=== PATIENT | male | born 1960 | race Caucasian/White ===

== ENCOUNTER 2017-05-24 03:01 | Inpatient (IN) | payer OTHER ==
[~2017-05-24] VITALS: Ht 175.3 cm; Wt 87.5 kg
[~2017-05-24 03:01] MED LIST: INSU100C5 SQ-INSULIN; INSU100I28 SQ-INSULIN; LEVO50TA5 PO; OXYC5TAB3 PO
[2017-05-24] MEDS ORDERED: ONDANSETRON 2MG/ML, 2ML ONE (03:26)
[2017-05-24] MEDS ORDERED: morphine SULFATE 10 MG/ML, 1ML ONE ×2 (03:27→05:04)
[2017-05-24] MEDS ORDERED: SODIUM CHLORIDE 0.9% 1,000ML IVBOLUS ONE ×2 (03:30→04:30)
[2017-05-24] MEDS ORDERED: ONDANSETRON 2MG/ML, 2ML IVPush ONE (03:30)
[2017-05-24] MEDS: MORPHINE SULFATE 4 MG/ML, 1ML IVPush PRN ×2 (03:32→05:07)
[2017-05-24 04:03] LABS: HEMATOCRIT 47.6 % (39.2-51.8); WHITE BLOOD COUNT 9.9 x10^3/uL (3.4-10)
[2017-05-24 04:15] LABS: ASPARTATE AMINO TRANSFERASE 7 U/L (15-37); BLOOD UREA NITROGEN 18 mg/dL (7-18)
[2017-05-24 04:20] LABS: IS PT STATUS REG ER OR PRE ER? YES
[2017-05-24] MEDS ORDERED: INSULIN REGULAR 100 UNITS/ML, 3ML VIAL ONE (04:59)
[2017-05-24] MEDS ORDERED: INSULIN REGULAR 100 UNITS/ML, 3ML VIAL IVPush ONE (05:00)
[2017-05-24 05:28] LABS: PH, VENOUS 7.197 pH (7.320-7.420)
[2017-05-24] MEDS ORDERED: REGULAR INSULIN 62.5 UNITS in SODIUM CHLORIDE 0.9% 249.375 ML IV PRN (05:42)
[2017-05-24] MEDS ORDERED: D5%-0.45% NACL 1,000 ML IV SCH (05:42)
[2017-05-24] MEDS ORDERED: hydrALAzine 20 MG/ML, 1ML IVPush PRN (06:00)
[2017-05-24] MEDS ORDERED: ACETAMINOPHEN 325 MG TABLET PO PRN (06:00)
[2017-05-24] MEDS ORDERED: LORazepam 2 MG/ML, 1ML IVPush PRN (06:00)
[2017-05-24] MEDS ORDERED: HYDROmorphone 2 MG/ML, 1ML IVPush PRN (06:00)
[2017-05-24] MEDS ORDERED: ONDANSETRON 2MG/ML, 2ML IVPush PRN (06:00)
[2017-05-24 06:26] LABS: BLOOD UREA NITROGEN 17 mg/dL (7-18)
[2017-05-24] MEDS ORDERED: HYDROmorphone 2 MG/ML, 1ML ONE (06:31)
[2017-05-24] MEDS: SODIUM CHLORIDE 0.9% 1,000 ML IV SCH ×2 (07:27→09:42)
[2017-05-24] MEDS ORDERED: MAGNESIUM SULFATE PMX 4GM/100M 100 ML IV ONE (08:20)
[2017-05-24] MEDS: REGULAR INSULIN 62.5 UNITS in SODIUM CHLORIDE 0.9% 249.375 ML IV PRN ×2 (08:35→18:12)
[2017-05-24] MEDS ORDERED: KETOROLAC 30 MG/1 ML IVPush PRN (10:30)
[2017-05-24] MEDS: D5%-0.45% NACL 1,000 ML IV SCH ×2 (10:55→16:28)
[2017-05-24] MEDS: FAMOTIDINE 20 MG/2 ML IVPush SCH ×2 (11:07→21:07)
[2017-05-24] MEDS: LEVOTHYROXINE 50 MCG TABLET PO SCH (11:07)
[2017-05-24] MEDS: ENOXAPARIN 40 MG/0.4 ML SQ SCH (11:08)
[2017-05-24 11:24] LABS: BLOOD UREA NITROGEN 14 mg/dL (7-18)
[2017-05-24 14:44] LABS: BLOOD UREA NITROGEN 11 mg/dL (7-18)
[2017-05-24] MEDS: ONDANSETRON 2MG/ML, 2ML IVPush PRN ×2 (14:55→21:08)
[2017-05-24] MEDS: OXYcodone IR 5MG TABLET PO PRN ×2 (16:27→23:06)
[2017-05-24] MEDS ORDERED: INSU100V8 SQ (16:46)
[2017-05-24 17:19] VITALS: BP 152/78
[2017-05-24 18:47] LABS: BLOOD UREA NITROGEN 12 mg/dL (7-18)
[2017-05-24] MEDS ORDERED: POTASSIUM CHLORIDE 40 MEQ in SODIUM CHLORIDE 0.9% 500 ML IV ONE (19:30)
[2017-05-24] MEDS: INSULIN DETEMIR 100 UNITS/ML, PEN SQ-INSULIN SCH (20:13)
[2017-05-24] MEDS: INSULIN ASPART 100 UNITS/ML, PEN SQ-INSULIN SCH (23:00)
[2017-05-25 01:44] LABS: BLOOD UREA NITROGEN 10 mg/dL (7-18)
[2017-05-25] MEDS: INSULIN ASPART 100 UNITS/ML, PEN SQ-INSULIN SCH ×3 (03:25→11:55)
[2017-05-25] MEDS: LEVOTHYROXINE 50 MCG TABLET PO SCH (05:20)
[2017-05-25] MEDS: ENOXAPARIN 40 MG/0.4 ML SQ SCH (05:21)
[2017-05-25] MEDS ORDERED: D5%-0.45% NACL 1,000 ML IV SCH (05:42)
[2017-05-25 06:27] LABS: BLOOD UREA NITROGEN 10 mg/dL (7-18)
[2017-05-25 08:00] VITALS: BP 128/83
[2017-05-25] MEDS: INSULIN DETEMIR 100 UNITS/ML, PEN SQ-INSULIN SCH (08:07)
[2017-05-25] MEDS: FAMOTIDINE 20 MG/2 ML IVPush SCH (08:08)
[2017-05-25] MEDS ORDERED: ONDANSETRON ODT 4 MG ONE (10:11)
[2017-05-25 11:24] LABS: BLOOD UREA NITROGEN 9 mg/dL (7-18)
== END 2017-05-25 13:35 | disposition home or self-care (01) | DRG 639 ==
LOC: ED 05:20 → EDIP 05:42 → CCU 08:53
PROVIDERS: ADMIT Family Medicine; ATTEND Family Medicine
DX: E10.10 Type 1 diabetes mellitus with ketoacidosis without coma (principal); E83.42 Hypomagnesemia; E10.65 Type 1 diabetes mellitus with hyperglycemia; E03.9 Hypothyroidism, unspecified; E86.0 Dehydration; Z90.49 Acquired absence of other specified parts of digestive tract
CPT/HCPCS: 36415; 74020; 80048; 80053; 80307; 81003; 82010; 82803; 82962; 83036; 83690; 83735; 83930; 84484; 85025; 87081; 96361; 96365; 96375; 96376; J1650; J1815; J1885; J2405; J3480; G0479; J2060; J3475; J7030; J7040; J7050; S0028